=== PATIENT | male | born 1960 | race Caucasian/White ===

== ENCOUNTER 2023-01-30 13:10 | Emergency (ER) | payer SELFPAY ==
[~2023-01-30] VITALS: Ht 185.4 cm; Wt 90.7 kg
[2023-01-30 15:50] VITALS: BP 134/84
== END 2023-01-30 15:50 | disposition home or self-care (01) ==
LOC: ER 13:10
DX: T15.11XA Foreign body in conjunctival sac, right eye, initial encounter (principal)
CPT/HCPCS: 70480; 96372; 99283-25; A9270; J1885